=== PATIENT | female | born 1985 | race Caucasian/White ===

== ENCOUNTER 2017-03-07 16:51 | Emergency (ER) | payer MEDICAID ==
[~2017-03-07 16:51] MED LIST: FLAG500T PO; ULTR50TA PO
--- NOTE | 2017-03-07 18:06 | PD ---
HPI Chief Complaint Spotting and cramping Date Seen: Mar 07, 2017 Time Seen: 17:40 Travel History International Travel<30 Days: No Contact w/Intl Traveler<30Days: No Known Affected Area: No History of Present Illness HPI 31-year-old 7 para 6 with 5 living children who is at 18 weeks gestation based on an 11 week 5 day ultrasound performed in [place] giving her an EDC of August 04. She reports over the past week having a spot or 2 of blood and pain in her abdominal area like a pulled muscle. She denies leakage of fluid or discharge. Weeks Gestation: 18 Para: 6 : 7 Miscarriage: 0 History Past Medical History Narrative Medical History of bradycardia with recent evaluation during this in the [place] area. She takes no medication for this. Obstetric History Obstetric History 6 prior vaginal deliveries which she reports have all occurred between 4-6 weeks early. Her first child from SIDS She reports her blood type is O+ She has not had any care with this . She had ultrasound dating during hospitalization [place] for evaluation of her bradycardia. Past Surgical History Surgical History: No Previous Surgery Family History Family History: Negative Social History Alcohol Use: No Tobacco Use: No Substance Abuse: No Allergies-Medications (Allergen,Severity, Reaction): Coded Allergies: No Known Allergies (Verified , 12/17/15) Home Meds Active Scripts Tramadol HCl (Ultram) 50 Mg Tab, 50 MG PO Q4H Y for PAIN SCALE 1 TO 10, #5 TAB Prov:Dwight Davalos MD 12/17/15 Metronidazole (Flagyl) 500 Mg Tab, 500 MG PO BID, #14 TAB Prov:Dwight Davalos MD 12/17/15 Review of Systems Except as stated in HPI: all other systems reviewed are Neg Physical Exam Narrative GENERAL: Well-nourished, well-developed patient. SKIN: Warm and dry. HEAD: Normocephalic and atraumatic. EYES: No scleral icterus. No injection or drainage. ENT: No nasal drainage noted. Mucous membranes pink. Airway patent. NECK: Supple, trachea midline. No JVD. CARDIOVASCULAR: Regular rate and rhythm without murmurs, gallops, or rubs. RESPIRATORY: Breath sounds equal bilaterally. No accessory muscle use. ABDOMEN/GI: Abdomen soft, non-tender, bowel sounds present, no rebound, no guarding Gravid to [-] weeks size Fundal Height: [-] GENITOURINARY: External Genitalia: intact and normal in appearance BUS glands: [Negative-] Cervix: [-] Dilatation: [Closed-] Effacement: [-Long] Station: [-] Presentation: [-] Membranes: [intact or ruptured] Uterine Contractions: [-] FHT's: Category: [-] Baseline: [-140] Reactive: [-] Variability: [-] Decels: [-] EXTREMITIES: No cyanosis or edema. BACK: Nontender without obvious deformity. No CVA tenderness. NEUROLOGICAL: Awake and alert. Motor and sensory grossly within normal limits. Five out of 5 muscle strength in all muscle groups. Normal speech. Data Data Vital Signs Reviewed: Yes MDM Medical Record Reviewed: Yes Narrative Course / MDM Assessment: 31-year-old grand multipara at 18 weeks gestation with no care and threatened AB. Plan: Information on care for women was given to the patient so that she could enroll in care as soon as possible. Precautions for follow-up were reviewed with the patient. Diagnosis Diagnosis: Primary Impression: 18 weeks gestation of Additional Impression: Threatened Disposition: 01 DISCHARGE HOME Condition: Good Al Prasad MD Mar 07, 2017 18:06
== END 2017-03-07 18:15 | disposition home or self-care (01) ==
LOC: HOBED 16:51
DX: O20.0 Threatened abortion (principal); Z86.79 Personal history of other diseases of the circulatory system; Z3A.18 18 weeks gestation of pregnancy
CPT/HCPCS: 99283

== ENCOUNTER 2017-04-01 08:54 | Emergency (ER) | payer MEDICAID ==
[2017-04-01 09:41] VITALS: BP 102/70; PULSE 66
--- NOTE | 2017-04-01 10:01 | PD ---
HPI Chief Complaint Fall Date Seen: Apr 01, 2017 Time Seen: 09:58 Travel History International Travel<30 Days: No Contact w/Intl Traveler<30Days: No Known Affected Area: No History of Present Illness HPI 31-year-old who is at 22 weeks 1 day based on limited criteria, patient has had no care but she had one ultrasound at some point during her first trimester due to a vaginal spotting. Patient states that she was getting up out of bed and fell over her child who is sleeping on the floor and hit the lower portion of her abdomen on a standard fan. He feels a little cramping and the lower abdominal area but no contractions no pain and no vaginal bleeding. Patient is feeling movement. Weeks Gestation: 22 Para: 6 : 7 History Past Medical History Medical History: Denies Significant Hx Obstetric History Obstetric History Spontaneous vaginal delivery 6 Past Surgical History Surgical History: No Previous Surgery Family History Family History: Negative Social History Alcohol Use: No Tobacco Use: Yes (1-2 packs per day) Substance Abuse: Yes (marijuana use) Allergies-Medications (Allergen,Severity, Reaction): Coded Allergies: No Known Allergies (Verified , 12/17/15) Home Meds Active Scripts Tramadol HCl (Ultram) 50 Mg Tab, 50 MG PO Q4H Y for PAIN SCALE 1 TO 10, #5 TAB Prov:Dwight Davalos MD 12/17/15 Metronidazole (Flagyl) 500 Mg Tab, 500 MG PO BID, #14 TAB Prov:Dwight Davalos MD 12/17/15 Review of Systems Except as stated in HPI: all other systems reviewed are Neg Physical Exam Narrative GENERAL: Well-nourished, well-developed patient. SKIN: Warm and dry. HEAD: Normocephalic and atraumatic. EYES: No scleral icterus. No injection or drainage. ENT: No nasal drainage noted. Mucous membranes pink. Airway patent. NECK: Supple, trachea midline. No JVD. CARDIOVASCULAR: Regular rate and rhythm without murmurs, gallops, or rubs. RESPIRATORY: Breath sounds equal bilaterally. No accessory muscle use. ABDOMEN/GI: Abdomen soft, non-tender, bowel sounds present, no rebound, no guarding Gravid to [19-] weeks size Fundal Height: [-] GENITOURINARY: Deferred External Genitalia: intact and normal in appearance BUS glands: [Normal-] Cervix: [-] Dilatation: [-] Effacement: [-] Station: [-] Presentation: [-] Membranes: [intact or ruptured] Uterine Contractions: [-] FHT's: Category: [-1] Baseline: [140-] Reactive: [-Moderate] Variability: [-Moderate] Decels: [Absent-] EXTREMITIES: No cyanosis or edema. BACK: Nontender without obvious deformity. No CVA tenderness. NEUROLOGICAL: Awake and alert. Motor and sensory grossly within normal limits. Five out of 5 muscle strength in all muscle groups. Normal speech. Data Data Vital Signs Reviewed: Yes [facility] Medical Record Reviewed: Yes Plan 31-year-old at 22 weeks status post fall Will order ultrasound as she seems to be size less than dates but it is difficult to tell based on her multiparous examination Will order labs I can at least see her Rh status. Checked out to oncoming OB hospitalist Diagnosis Diagnosis: Primary Impression: 22 weeks gestation of Additional Impressions: No care in current in second trimester Smoker within last 12 months Livia Bucio MD Apr 01, 2017 10:01
[2017-04-01] MEDS ORDERED: ACETAMINOPHEN 325 MG TAB PO ONE (10:15)
[2017-04-01 10:43] LABS: HEMATOCRIT 31.3 % (35.0-46.0); MEAN CELL VOLUME 91.3 FL (80.0-100.0); MEAN CORPUSCULAR HEMOGLOBIN 31.2 PG (27.0-34.0); MEAN CORPUSCULAR HGB CONC 34.2 % (32.0-36.0); PLATELET COUNT 226 TH/MM3 (150-450); RED BLOOD COUNT 3.43 MIL/MM3 (4.00-5.30); RED CELL DISTRIBUTION WIDTH 14.6 % (11.6-17.2); REVIEW FLAG FINAL
[2017-04-01 11:22] LABS: RUBELLA IGG ANTIBODY 112.5 IU/mL (10.0-500.0); RUBELLA STATUS IMMUNE (IMMUNE)
[2017-04-01 13:00] VITALS: RESP 18
[2017-04-04 09:24] LABS: BATH SALTS (MDPV) UR NEG (NEG); ECSTASY (MDMA) UR NEG (NEG); GABAPENTIN UR NEG (NEG); HEROIN (6-ACETYLMORPHINE) UR NEG (NEG); HYDROMORPHONE U NEG (NEG); K2 SPICE UR NEG (NEG); OBMETHADONE UR NEG (NEG); PHENCYCLIDINE URINE NEG (NEG)
== END 2017-04-01 14:06 | disposition home or self-care (01) ==
LOC: HOBED 08:54
DX: O09.32 Supervision of pregnancy with insufficient antenatal care, second trimester (principal); Z3A.22 22 weeks gestation of pregnancy; W01.198A Fall on same level from slipping, tripping and stumbling with subsequent striking against other object, initial encounter; Y92.003 Bedroom of unspecified non-institutional (private) residence as the place of occurrence of the external cause; Z11.3 Encounter for screening for infections with a predominantly sexual mode of transmission
CPT/HCPCS: 76805; 76815; 80074; 80307; 85027; 86592; 86762; 86850; 86900; 86901; 87389; 99284; G0481

== ENCOUNTER 2017-04-23 12:40 | Emergency (ER) | payer MEDICAID ==
[~2017-04-23] VITALS: Ht 175.3 cm; Wt 72.0 kg
[2017-04-23 13:10] VITALS: BP 113/63; PULSE 100; RESP 16; TEMP 99; O2SAT 97
[2017-04-23] MEDS ORDERED: LORA-400 PO (13:24)
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
== END 2017-04-23 14:51 | disposition home or self-care (01) ==
LOC: PHEFT 12:40
DX: O99.512 Diseases of the respiratory system complicating pregnancy, second trimester (principal); J31.0 Chronic rhinitis; O99.332 Smoking (tobacco) complicating pregnancy, second trimester; F17.210 Nicotine dependence, cigarettes, uncomplicated; Z3A.25 25 weeks gestation of pregnancy
CPT/HCPCS: 99282

== ENCOUNTER 2017-05-16 22:17 | Emergency (ER) | payer MEDICAID ==
[~2017-05-16] VITALS: Ht 175.3 cm; Wt 71.7 kg
[~2017-05-16 22:17] MED LIST changes: -FLAG500T PO; +LORA-400 PO; -ULTR50TA PO
--- NOTE | 2017-05-16 23:46 | PD ---
HPI Chief Complaint ?contractions Date Seen: May 16, 2017 Time Seen: 23:39 Travel History International Travel<30 Days: No Contact w/Intl Traveler<30Days: No Known Affected Area: No History of Present Illness HPI 31-year-old 7 para 6 at 28-5/7 weeks' gestation who presents with concern of possible contractions. She denies any leakage of fluid, bleeding or abdominal pain. No dysuria hematuria or frequency. History Obstetric History Obstetric History 6 prior vaginal deliveries which she states were all 4-6 weeks premature She's had no care with this other than visits to the ED. Past Surgical History Narrative Surgical PE tubes Family History Family History: Negative Social History Alcohol Use: No Tobacco Use: Yes Substance Abuse: Yes (marijuana) Allergies-Medications (Allergen,Severity, Reaction): Coded Allergies: No Known Allergies (Verified Adverse Reaction, Unknown, 05/16/17) Home Meds Discontinued Reported Medications Loratadine-Pseudoephedrine 24 HR (Claritin-D 24 HR) 10-240 Mg Tab, 1 TAB PO DAILY for Allergy Management, TAB 0 Refills 04/23/17 Review of Systems Except as stated in HPI: all other systems reviewed are Neg Physical Exam Narrative GENERAL: Well-nourished, well-developed patient. SKIN: Warm and dry. HEAD: Normocephalic and atraumatic. EYES: No scleral icterus. No injection or drainage. ENT: No nasal drainage noted. Mucous membranes pink. Airway patent. NECK: Supple, trachea midline. No JVD. CARDIOVASCULAR: Regular rate and rhythm without murmurs, gallops, or rubs. RESPIRATORY: Breath sounds equal bilaterally. No accessory muscle use. ABDOMEN/GI: Abdomen soft, non-tender, bowel sounds present, no rebound, no guarding Gravid to [-] weeks size Fundal Height: [-29] GENITOURINARY: External Genitalia: intact and normal in appearance BUS glands: [-Negative] Cervix: [-] Dilatation: [-Closed] Effacement: [-Long] Station: [High -] Presentation: [-] Membranes: [intact ] Uterine Contractions: [-None] FHT's: Category: [-1] Baseline: [-] Reactive: [Yes-] Variability: [-] Decels: [-] EXTREMITIES: No cyanosis or edema. BACK: Nontender without obvious deformity. No CVA tenderness. NEUROLOGICAL: Awake and alert. Motor and sensory grossly within normal limits. Five out of 5 muscle strength in all muscle groups. Normal speech. Data Data Orders Orders Fibronectin (05/16/17 23:04) Vital Signs (Adult) .ON ADMISSION (05/16/17 23:19) ^ Labor Status (05/16/17 23:19) Labs Laboratory Tests Test 05/16/17 23:05 MDM Medical Record Reviewed: Yes Narrative Course / MDM Assessment: 28 weeks 5 days intrauterine with without evidence of labor Plan: Emphasized importance of care for this patient. Tobacco cessation was encouraged to decrease risk and labor risk. Labor signs and symptoms were reviewed. Diagnosis Diagnosis: Primary Impression: 28 weeks gestation of Additional Impression: Winneconne Escalante' contraction Disposition: 01 DISCHARGE HOME Condition: Good Al Prasad MD May 16, 2017 23:46
== END 2017-05-17 00:05 | disposition home or self-care (01) ==
LOC: HOBED 22:17
DX: O47.1 False labor at or after 37 completed weeks of gestation (principal); O99.333 Smoking (tobacco) complicating pregnancy, third trimester; Z3A.28 28 weeks gestation of pregnancy
CPT/HCPCS: 82731; 99284

== ENCOUNTER 2017-09-12 17:27 | Emergency (ER) | payer MEDICAID ==
[~2017-09-12] VITALS: Ht 175.3 cm; Wt 73.5 kg
[2017-09-12 17:30] VITALS: BP 116/61; PULSE 58; RESP 16; TEMP 98.8; O2SAT 100
[2017-09-12] MEDS ORDERED: ACETAMINOPHEN/HYDROcodone 325 MG/5 MG TAB PO ONE (17:45)
--- NOTE | 2017-09-12 17:45 | PD ---
HPI Chief Complaint: Injury Time Seen by Provider: 17:34 Travel History International Travel<30 days: No Contact w/Intl Traveler<30days: No Traveled to known affect area: No History of Present Illness HPI 31-year-old female that presents to the ED for evaluation of fall. Per patient she fell 2 days ago. Per patient she tripped on a log a lot of left side. She denies any her head or losing consciousness. Per patient she wants something to her left hips and today she developed more pain in her left ribs as well as with swelling. She is taking any blood thinners. Pain with range of motion as well as with deep breaths and touch. States also having some mid back pain that radiates to the left shoulder. Denies any prior injuries to this area. No neck pain. No lower back pain. No urinary or bowel movement issues. Denies . States the pain is 8 out of 10 especially on the ribs and the back. Head per patient seems to be getting better except with certain range of motion. Has no allergies to medication. Numbness, tingling, weakness. No other medical issues. PFSH Past Medical History Anxiety: Yes Heart Rhythm Problems: Yes (bradycardia.) Cardiovascular Problems: Yes (IRREGULAR HB) Diminished Hearing: Yes Immunizations Current: Yes Migraines: Yes LMP: 2 weeks ago Menopausal: No : 6 Para: 5 Miscarriage: 0 : 0 Past Surgical History Ear Surgery: Yes (tubes) Tympanostomy Tube: Yes Other Surgery: Yes (EAR TUBES CHILD) Social History Alcohol Use: No Tobacco Use: Yes Substance Use: No Allergies-Medications (Allergen,Severity, Reaction): Coded Allergies: No Known Allergies (Verified Adverse Reaction, Unknown, 09/12/17) Reported Meds & Prescriptions Reported Meds & Active Scripts Active No Active Prescriptions or Reported Medications Review of Systems Except as stated in HPI: all other systems reviewed are Neg Physical Exam Narrative GENERAL: SKIN: Warm and dry. HEAD: Atraumatic. Normocephalic. EYES: Pupils equal and round. No scleral icterus. No injection or drainage. ENT: No nasal bleeding or discharge. Mucous membranes pink and moist. Tongue is midline. No uvula deviation. NECK: Trachea midline. No JVD. CARDIOVASCULAR: Regular rate and rhythm. RESPIRATORY: No accessory muscle use. Clear to auscultation. Breath sounds equal bilaterally. GASTROINTESTINAL: Abdomen soft, non-tender, nondistended. Hepatic and splenic margins not palpable. MUSCULOSKELETAL: Extremities without clubbing, cyanosis, or edema. No obvious deformities. Full range of motion of the upper and lower extremities bilaterally. Patient has a producible pain on the left rib cage just below the breast with some soft tissue swelling noted. Seen with female nurse present. 2 + pulses bilaterally. No lumbar, thoracic, cervical spine tenderness to palpation. Most of the pain appears to be in the musculature in the thoracic area from the left side. No scapular tenderness patient. No pelvic bone tenderness to palpation. Patient range of motion of the left hip. Neurovascular intact. NEUROLOGICAL: Awake and alert. No obvious cranial nerve deficits. Motor grossly within normal limits. Five out of 5 muscle strength in the arms and legs. Normal speech. PSYCHIATRIC: Appropriate mood and affect; insight and judgment normal. Data Data Last Documented VS Vital Signs Date Time Temp Pulse Resp B/P (MAP) Pulse Ox O2 Delivery O2 Flow Rate FiO2 09/12/17 17:30 98.8 58 16 116/61 (79) 100 Orders Orders Hip, Uni(Ap&Lat) W Ap Pelvis (09/12/17 17:37) Ribs, Uni (W/Exp Cxr-Min 3vw) (09/12/17 17:37) Spine, Thoracic-Ap/Lat/Sw(3vw) (09/12/17 17:37) Acetamin-Hydrocod 325-5 Mg (Swengel 5-325 (09/12/17 17:45) MDM Medical Decision Making Medical Screen Exam Complete: Yes Emergency Medical Condition: Yes Medical Record Reviewed: Yes Interpretation(s) xray of ribs was negative xray of hip negative xray of thoracic spine negative for acute bony injury Differential Diagnosis Fall versus contusion versus fracture versus bruise Narrative Course 31-year-old female that presents to the ED for evaluation of fall. Patient was properly examined and was found to have signs and symptoms consistent appears to be fall. Imaging was ordered. Patient was given pain medication. Imaging showed no sign of acute bony injury. Patient was reassured. Likely contusions. We'll treat with Flexeril and tramadol for pain. Told to follow with PCP. See ED worsening symptoms. Ice or warm compresses. Diagnosis Primary Impression: Fall Qualified Codes: W19.XXXA - Unspecified fall, initial encounter Additional Impressions: Back pain Qualified Codes: M54.6 - Pain in thoracic spine Contusion of hip, left Qualified Codes: S70.02XA - Contusion of left hip, initial encounter Contusion of rib on left side Qualified Codes: S20.212A - Contusion of left front wall of thorax, initial encounter Patient Instructions: General Instructions, Narcotic given in the ED Additional Instructions: Take medications as prescribed. Follow-up with PCP. See ED for any worsening symptoms. Do not drink or drive while taking pain medication. Apply ice or heat as needed for pain Med/Other Pt SpecificInfo: Prescription(s) given Scripts Tramadol (Tramadol) 50 Mg Tab 50 MG PO Q6H Y for PAIN, #14 TAB 0 Refills Prov: Jeny Ladd DO 09/12/[address] (Diclofenac Sodium DR) 75 Mg Tabdr 75 MG PO BID Y for PAIN SCALE 1 TO 10, #20 TAB 0 Refills Prov: Jeny Ladd DO 09/12/17 Disposition: 01 DISCHARGE HOME Condition: Stable Johnathon Dinh Sep 12, 2017 17:45
[2017-09-12] MEDS ORDERED: TRAM50TA PO (18:21)
[2017-09-12] MEDS ORDERED: DICL75TA PO (18:21)
--- NOTE | 2017-09-12 18:47 | RADRPT ---
EXAM DATE/TIME: 09/12/2017 17:54 [facility] COMPARISON: No previous studies available for comparison. INDICATIONS : Left hip pain post fall. MEDICAL HISTORY : None. SURGICAL HISTORY : None. ENCOUNTER: Initial ACUITY: 2 days PAIN SCORE: 6/10 LOCATION: Left pelvis FINDINGS: Examination of the left hip was performed with AP Pelvis. The primary and secondary trabecular patte rn of the femoral neck is intact. The hip joint is of normal width without significant sclerosis or bony hypertrophy. The acetabulum is grossly intact. CONCLUSION: No fracture seen. Cal Kirby MD on September 12, 2017 at 18:45 Board Certified Radiologist. This report was verified electronically.
--- NOTE | 2017-09-12 18:48 | RADRPT ---
EXAM DATE/TIME: 09/12/2017 17:54 [facility] COMPARISON: No previous studies available for comparison. INDICATIONS : Left posterior, inferior rib pain irradiating around under left breast post fall. MEDICAL HISTORY : None. SURGICAL HISTORY : None. ENCOUNTER: Initial ACUITY: 2 days PAIN SCORE: 9/10 LOCATION: Left chest FINDINGS: Multiple views of the left ribs were performed. There is no evidence of displaced fracture. No dest ructive lesions or areas of periosteal thickening are seen. Expiratory view of the chest is negative for pneumothorax. The mediastinal structures are midline. CONCLUSION: Negative left rib series. Cal Kirby MD on September 12, 2017 at 18:46 Board Certified Radiologist. This report was verified electronically.
--- NOTE | 2017-09-12 18:48 | RADRPT ---
EXAM DATE/TIME: 09/12/2017 17:54 [facility] COMPARISON: SPINE THORACIC AP/LAT/SW (3VW), August 22, 2012, 21:57. INDICATIONS : Thoracic spine pain post fall. MEDICAL HISTORY : None. SURGICAL HISTORY : None. ENCOUNTER: Initial ACUITY: 2 days PAIN SCORE: 9/10 LOCATION: Bilateral thoarcic spine FINDINGS: There is normal alignment of the thoracic vertebral bodies. Vertebral body height is maintained. No evidence of fracture or subluxation. Pedicles are intact at all levels. The paravertebral reflecti ons are not thickened. CONCLUSION: No evidence of compression deformity or spondylolisthesis. Cal Kirby MD on September 12, 2017 at 18:45 Board Certified Radiologist. This report was verified electronically.
== END 2017-09-12 19:12 | disposition home or self-care (01) ==
LOC: PHEFT 17:27
DX: M54.6 Pain in thoracic spine (principal); S70.02XA Contusion of left hip, initial encounter; S20.212A Contusion of left front wall of thorax, initial encounter; W18.09XA Striking against other object with subsequent fall, initial encounter
CPT/HCPCS: 71101; 72072; 73502; 99284

== ENCOUNTER 2018-08-29 11:48 | Inpatient (IN) ==
--- NOTE | 2018-08-29 12:38 | ED ---
History of Present Illness Primary Care Physician: No Primary Care Physician Chief Complaint: Leaking of fluid History of Present Illness: 32-year-old G7P 6005, no care. Patient is a poor historian. is been complicated by no care, history of heart attack and noncompliant with cardiology followup, hearing defect, marijuana use The patient presents complaining of the onset of leaking of fluid between 8:53 PM last night. She reports that it is a small amount of clear fluid that she notices mostly after she urinates. She denies any big gush of fluid. She reports that the fluid does not smell like urine. She reports that she started having contractions about 4:57 AM today that were increasing in intensity and frequency to every 5 minutes. She reports that she is still having them but now they are irregular and much less frequent. She reports a syncopal episode 2 days ago. She reports good movement. She denies any vaginal bleeding. SHe reports she had some chest pain, but denies any at this time. She has no other complaints. 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 PMH: MT, bradycardia, blood clot on heart valve, depression, anxiety, hypoglycemia FH: Thyroid disease, CAD, MT, cervical cancer, breast cancer PSH: PE tubes SH: Reports marijuana use, denies other substance abuse Meds/allergies: As per EMR Weeks Gestation:: 32 Para: 6 : 7 Total # of Miscarriage(s): 0 Total # of Abortions (Spontaneous & Elective): 0 Review of Systems All other systems reviewed negative except as stated in HPI [facility] - History History Provided By: Patient - Medical History Medical History: Medical History (Last Updated 01/29/18 @ 12:01 by Jessica Kelley RN) Sinus bradycardia, chronic (Acute) High cholesterol (Acute) Myocardial infarct, old (Acute) - Surgical History Surgical History: Surgical History (Last Updated 01/29/18 @ 12:01 by Jessica Kelley RN) Hx of cardiac cath (Acute) - Tobacco History Second Hand Smoke Exposure: Yes Smoking Status: Current every day smoker Tobacco Type: Cigarettes - Alcohol History How Often Do You Have a Drink Containing Alcohol: Never - Substance Use History Substance History: No History of Abuse Medications and Allergies Allergies Allergy/AdvReac Type Severity Reaction Status Date / Time No Known Allergies Allergy Unknown none Uncoded 03/11/18 09:33 Exam Vital signs: Vital Signs 08/29/18 12:11 08/29/18 12:12 Temperature 98.3 F Pulse Rate 83 Respiratory Rate 20 Blood Pressure 114/67 Intake & Output 08/28/18 08/29/18 08/29/18 18:59 06:59 18:59 Weight 72.575 kg Narrative: GENERAL: Well-nourished, well-developed patient. NAD. SKIN: Warm and dry. No rashes, masses, lesions noted. HEAD: Normocephalic and atraumatic. EYES: No scleral icterus. No injection or drainage. ENT: No nasal drainage noted. Mucous membranes pink. Airway patent. NECK: Supple, trachea midline. No JVD. CARDIOVASCULAR: Regular rate and rhythm without murmurs, gallops, or rubs. RESPIRATORY: Breath sounds equal bilaterally. No accessory muscle use. BREASTS: Deferred ABDOMEN/GI: Abdomen soft, non-tender, bowel sounds present, no rebound, no guarding, Gravid. GENITOURINARY: Normal EGBUS, no cervical or vaginal masses noted, physiologic discharge, grossly normal rugae, SVE 3/50/-3, Amnisure positive FHT's: NST indicated for leaking of fluid and prematurity. Moderate halfway variability with heart rate baseline in the 140s, good accelerations and no decelerations noted. This is a category 1 heart rate tracing and reactive NST. EXTREMITIES: No cyanosis or edema. BACK: Nontender without obvious deformity. No CVA tenderness. NEUROLOGICAL/Musculoskeletal/Psychiatric: Awake and alert. Grossly normal memory /affect. Grossly normal range of motion. Grossly normal gait. Motor and sensory grossly within normal limits. Five out of 5 muscle strength in all muscle groups. Normal speech. Cranial Nerves II-XII are grossly intact. Results - Labs CBC & Chem 7: 08/29/18 13:00 08/29/18 13:00 Assessment and Plan - Plan Assessment/plan: 1. IUP at 32.6 by today's ultrasound 2. No care: We will order labs 3. PPROM: Patient 32.6 by today's ultrasound. We will start magnesium sulfate for tocolysis, betamethasone for lung maturity, and ampicillin/ azithromycin to prolong latency. Neonatology consultation placed. Discharge Plan - Physicians Team Primary Care Provider: Primary Care Tricia Loo Attending Provider: Jacqui Salmon Other Providers: Carlos Velazquez MD - Rxs /Orders / Referrals /Forms Prescriptions: No Action albuterol sulfate 90 mcg/actuation HFA aerosol inhaler 1 inh INHALATION Q4-6H PRN (Reason: bronchospasm) Qty: 6.7 RF: 0 amoxicillin-pot clavulanate [Augmentin] 875-125 mg tablet 1 tab PO BID Qty: 20 RF: 0
[2018-08-29] MEDS ORDERED: Acetaminophen 325 MG Tablet PO PRN (12:49)
[2018-08-29 13:45] LABS: Baso # (Auto) 0.1 th/mm3 (0.0-0.2); Baso % (Auto) 0.4 % (0.0-2.0); Eos # (Auto) 0.3 th/mm3 (0.0-0.4); Eos % (Auto) 1.6 % (0.0-4.0); Hematocrit 32.2 % (35.0-46.0); Hemoglobin 10.9 gm/dL (11.6-15.3); Lymph # (Auto) 2.2 th/mm3 (1.0-4.8); Lymph % (Auto) 13.6 % (9.0-44.0); Mean Corpuscular HGB Conc 33.8 % (32.0-36.0); Mean Corpuscular Volume 91.8 fL (80.0-100.0); Mean Platelet Volume 7.9 fL (7.0-11.0); Mono # (Auto) 1.3 th/mm3 (0.0-0.9); Neut # (Auto) 12.3 th/mm3 (1.8-7.7); Neut % (Auto) 76.4 % (16.0-70.0); Platelet Count 298 th/mm3 (150-450); Red Blood Count 3.51 mil/mm3 (4.00-5.30); Red Cell Distribution Width 14.2 % (11.6-17.2); White Blood Count 16.1 th/mm3 (4.0-11.0)
[2018-08-29 14:06] LABS: Alanine Aminotransferase 12 U/L (10-53); Albumin 2.4 g/dL (3.4-5.0); Anion Gap 11 meq/L (5-15); Aspartate Aminotransferase 13 U/L (15-37); Blood Urea Nitrogen 3 mg/dL (7-18); Calcium 8.1 mg/dL (8.5-10.1); Carbon Dioxide 21.9 meq/L (21.0-32.0); Chloride 106 meq/L (98-107); Glomerular Filtration Rate Greater Than 89 mL/min (>89); Glucose,Random 71 mg/dL (74-106); Potassium 3.5 meq/L (3.5-5.1); Sodium 139 meq/L (136-145)
[2018-08-29 14:08] LABS: Alkaline Phosphatase 136 U/L (45-117); Total Protein 6.5 g/dL (6.4-8.2)
[2018-08-29] MEDS ORDERED: Mag Sulf/Water 4 gm/100 ml 100 ML IV.SIG ONE (14:42)
--- NOTE | 2018-08-29 14:57 | ECHRPT ---
Indication: Chronic Pulm Heart Disease CONCLUSIONS Mildly dilated left ventricle. Wall thickness is measured at the upper limits of normal. The left ventricular systolic function is normal with an estimated ejection fraction in the range of 55-60%. There is trace tricuspid valve regurgitation. The estimated pulmonary arterial pressure is 28 mmHg. BP: / HR: Rhythm: MEASUREMENTS (Male / Female) Normal Values Technical Quality:Good 2D ECHO LV Diastolic Diameter PLAX 5.3 cm 4.2 - 5.9 / 3.9 - 5.3 cm LV Systolic Diameter PLAX 3.4 cm IVS Diastolic Thickness 1.0 cm 0.6 - 1.0 / 0.6 - 0.9 cm LVPW Diastolic Thickness 0.9 cm 0.6 - 1.0 / 0.6 - 0.9 cm LV Relative Wall Thickness 0.4 RV Internal Dim ED PLAX 3.5 cm LVOT Diameter 2.1 cm Aortic Root Diameter 2.8 cm LA Systolic Diameter LX 3.4 cm 3.0 - 4.0 / 2.7 - 3.8 cm DOPPLER AV Peak Velocity 140.0 cm/s AV Peak Gradient 7.8 mmHg LVOT Peak Velocity 121.0 cm/s LVOT Peak Gradient 5.9 mmHg AV Area Cont Eq pk 3.0 cm Mitral E Point Velocity 114.0 cm/s Mitral A Point Velocity 101.0 cm/s Mitral E to A Ratio 1.1 LV E' Lateral Velocity 19.3 cm/s Mitral E to LV E' Lateral Ratio 5.9 LV E' Septal Velocity 10.9 cm/s Mitral E to LV E' Septal Ratio 10.5 TR Peak Velocity 214.0 cm/s TR Peak Gradient 18.3 mmHg Right Atrial Pressure 10.0 mmHg Pulmonary Artery Systolic Pressu 28.3 mmHg Right Ventricular Systolic Press 28.3 mmHg PV Peak Velocity 111.0 cm/s PV Peak Gradient 4.9 mmHg FINDINGS LEFT VENTRICLE Mildly dilated left ventricle. Wall thickness is measured at the upper limits of normal. The left ventricular systolic function is normal with an estimated ejection fraction in the range of 55-60%. RIGHT VENTRICLE Normal right ventricular size and systolic function. LEFT ATRIUM The left atrial size is normal. RIGHT ATRIUM The right atrial size is normal. ATRIAL SEPTUM Normal atrial septal thickness without atrial level shunting by limited color doppler interrogation. AORTA The aortic root and proximal ascending aorta are normal in size on limited imaging. MITRAL VALVE Structurally normal mitral valve. No mitral valve stenosis or regurgitation. AORTIC VALVE Trileaflet aortic valve. No aortic valve stenosis or regurgitation. TRICUSPID VALVE There is trace tricuspid valve regurgitation. The estimated pulmonary arterial pressure is 28 mmHg. PULMONARY VALVE No pulmonary valve regurgitation or stenosis. VESSELS The inferior vena cava is normal in size. PERICARDIUM No pericardial effusion. Carlos Velazquez MD (Electronically Signed) Final Date:29 August 2018 14:56
[2018-08-29] MEDS: Betamethasone Sod Phos/Acetate Inj 30 MG/5 ML Vial IM SCH (16:18)
[2018-08-29] MEDS: Mag Sulf/Water 40 gm/1000 ml 40 GM/1,000 ML BAG IV.CONT SCH (16:20)
[2018-08-29] MEDS: Azithromycin Inj 500 MG in Sodium Chlor 0.9% Inj 250 ML IV.SIG SCH (16:47)
[2018-08-29 17:07] LABS: Bacteria,Urine Rare /hpf; Bilirubin,Urine Negative (Negative); Clarity,Urine Clear (Clear); Color,Urine Yellow (Yellw/Straw); Glucose,Urine (UA) Negative (Negative); Hyaline Casts,Urine 1 /lpf (0-3); Leukocyte Esterase,Urine Small (Negative); Mucus,Urine Few /lpf (Occasional); Nitrite,Urine Negative (Negative); Specific Gravity,Urine 1.012 (1.002-1.035); Squamous Epithelial Cell,Urine 1 /hpf (0-5)
--- NOTE | 2018-08-29 17:10 | MB ---
cc: Carlos Velazquez MD DATE: 08/29/2018 REASON FOR CONSULTATION: Questionable cardiac disease. HISTORY OF PRESENT ILLNESS: The patient is a pleasant 32-year-old woman who is currently on the obstetrics floor for rupture of membranes. She has a questionable complex cardiac disease, but her history is rather vague. The patient states that she has had "a heart attack by blood work" and a "blood clot in her heart." She denies having any stents placed. She does say she had a cardiac catheterization about a year ago at [facility], but nothing was done at this time. She says she has had multiple episodes of passing out that she has always attributed to her blood sugars. She does say that people have told her in the past that she might need a pacemaker, but again this is very vague. I do note that the patient continues to smoke and has positive marijuana in her toxicology screen, though she denies other illicit drugs. The patient does endorse vague upper chest burning off and on for years. PAST MEDICAL HISTORY: Questionable cardiac history as above. CURRENT MEDICATIONS: Ampicillin, Colace. ALLERGIES: NO KNOWN DRUG ALLERGIES. PHYSICAL EXAMINATION: VITAL SIGNS: Afebrile, pulse 83, respiratory rate 20, BP 114/67. GENERAL: Pleasant young woman in no distress. NECK: No JVD. LUNGS: Clear to auscultation bilaterally. CARDIOVASCULAR: Regular rate and rhythm. No murmurs appreciated. ABDOMEN: Benign. EXTREMITIES: No edema. LABORATORY DATA: Sodium 139, potassium 3.5, chloride 106, bicarbonate 21.9, BUN 3, creatinine 0.33, glucose 71. White count 16.1, hematocrit 32.2, platelets 298. EKG shows sinus rhythm with no acute ST or T-wave changes. Echocardiogram showed normal left ventricular function with no significant valvular disease. IMPRESSION: Cardiac history. The patient's cardiac history is very vague. She has normal testing here including an EKG and echocardiogram, yet reports what sounds like an extensive cardiac history. It is difficult to reconcile these differences. I will attempt to get her cardiac catheterization report from [facility], but if there is no significant coronary disease by the cardiac catheterization, she likely does not require any further inpatient studies. Her history of syncope is vague and apparently has been worked up well in the past and this could be further worked up as an outpatient. An outpatient workup could include a short-term or long-term Holter monitor. Certainly while she is , we would not pursue aggressive radiological studies that would potentially provide radiation to the baby. Should her cardiac catheterization show no significant coronary artery disease, I would sign off, and again, she should follow up with an outpatient deli bakery clerk. Thank you again for the opportunity to participate in this patient's care. Carlos Velazquez MD CLARISSE/sv , 03:39 PM , 03:48 PM
--- NOTE | 2018-08-29 18:00 | ECG ---
Date Performed: 08/29/2018 Time Performed: 13:23:25 PTAGE: 32 years EKG: Sinus rhythm WITH MARKED SINUS ARRHYTHMIA BORDERLINE ECG PREVIOUS TRACING : 03/11/2018 10.57 Since the previous tracing, no significant change noted DOCTOR: Brandie Hou Interpretating Date/Time 08/29/2018 17:58:35
--- NOTE | 2018-08-29 18:17 | P.HPOB ---
History of Present Illness Primary Care Physician: No Primary Care Physician Chief Complaint: Leaking of fluid History of Present Illness: Patient Name: Andie Javed Date of : 87 Patient Status: Inpatient Attending Provider: Jacqui Salmon Date: 08/29/18 12:36 Initialization Date: 08/29/18 12:36 History of Present Illness Primary Care Physician: No Primary Care Physician Chief Complaint: Leaking of fluid History of Present Illness: 32-year-old G7P 6005, no care. Patient is a poor historian. is been complicated by no care, history of heart attack and noncompliant with cardiology followup, hearing defect, marijuana use The patient presents complaining of the onset of leaking of fluid between 8:53 PM last night. She reports that it is a small amount of clear fluid that she notices mostly after she urinates. She denies any big gush of fluid. She reports that the fluid does not smell like urine. She reports that she started having contractions about 4:57 AM today that were increasing in intensity and frequency to every 5 minutes. She reports that she is still having them but now they are irregular and much less frequent. She reports a syncopal episode 2 days ago. She reports good movement. She denies any vaginal bleeding. SHe reports she had some chest pain, but denies any at this time. She has no other complaints. 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 NAD. SKIN: Warm and dry. No rashes, masses, lesions noted. HEAD: Normocephalic and atraumatic. EYES: No scleral icterus. No injection or drainage. ENT: No nasal drainage noted. Mucous membranes pink. Airway patent. NECK: Supple, trachea midline. No JVD. CARDIOVASCULAR: Regular rate and rhythm without murmurs, gallops, or rubs. RESPIRATORY: Breath sounds equal bilaterally. No accessory muscle use. BREASTS: Deferred ABDOMEN/GI: Abdomen soft, non-tender, bowel sounds present, no rebound, no guarding, Gravid. GENITOURINARY: Normal EGBUS, no cervical or vaginal masses noted, physiologic discharge, grossly normal rugae, SVE 3/50/-3, Amnisure positive FHT's: NST indicated for leaking of fluid and prematurity. Moderate group home variability with heart rate baseline in the 140s, good accelerations and no decelerations noted. This is a category 1 heart rate tracing and reactive NST. EXTREMITIES: No cyanosis or edema. BACK: Nontender without obvious deformity. No CVA tenderness. NEUROLOGICAL/Musculoskeletal/Psychiatric: Awake and alert. Grossly normal memory /affect. Grossly normal range of motion. Grossly normal gait. Motor and sensory grossly within normal limits. Five out of 5 muscle strength in all muscle groups. Normal speech. Cranial Nerves II-XII are grossly intact. Results Assessment and Plan - Plan Assessment/plan: 1. IUP at 32.6 by today's ultrasound 2. No care: We will order labs 3. PPROM: Patient 32.6 by today's ultrasound. We will start magnesium sulfate for tocolysis, betamethasone for lung maturity, and ampicillin/ azithromycin to prolong latency. Neonatology consultation placed. We discussed the risks of . We discussed the indications for section including maternal indications, indications, and emergent indications. The risks, benefits, and alternatives of section were discussed with the patient. The risks include but are not limited to pain, infection, bleeding , injury to other organs like the bladder/bowel/nerves/vessels, injury to the baby, need for repeat operation, need for hysterectomy, need for blood transfusion, wound infection or breakdown, and other possible risks. All the patient's questions were answered and consent signed. 4. well-being: Reassuring testing with reactive NST and category 1 heart rate tracing, will continue external monitoring 5. History of ND: Cardiology consultation placed, EKG/echo ordered 6. History of depression/anxiety: No meds at this time 7. Tobacco use 8. Marijuana use 9. History of hypoglycemia Discharge Plan - Physicians Team Primary Care Provider: Primary Care Tricia Loo Attending Provider: Jacqui Salmon Other Providers: Carlos Velazquez MD - Rxs /Orders / Referrals /Forms Prescriptions: No Action albuterol sulfate 90 mcg/actuation HFA aerosol inhaler 1 inh INHALATION Q4-6H PRN (Reason: bronchospasm) Qty: 6.7 RF: 0 amoxicillin-pot clavulanate [Augmentin] 875-125 mg tablet 1 tab PO BID Qty: 20 RF: 0 - Inpatient Certification I certify that the inpatient services were ordered in accordance with Medicare regulations governing the order. This includes certification that hospital inpatient services are reasonable and necessary and in the case of services not specified as inpatient-only under 42 CFR 419.22(n), that they are appropriately provided as inpatient services in accordance to with the 2-midnight benchmark under 43 CFR 412.3(e) Estimated Total Length of Stay (Days): 3 Plans for Post Hospital Care: Home [facility] - History History Provided By: Patient - Medical History Medical History: Medical History (Last Updated 01/29/18 @ 12:01 by Jessica Kelley RN) Sinus bradycardia, chronic (Acute) High cholesterol (Acute) Myocardial infarct, old (Acute) - Surgical History Surgical History: Surgical History (Last Updated 01/29/18 @ 12:01 by Jessica Kelley RN) Hx of cardiac cath (Acute) - Tobacco History Second Hand Smoke Exposure: Yes Smoking Status: Current every day smoker Tobacco Type: Cigarettes - Alcohol History How Often Do You Have a Drink Containing Alcohol: Never - Substance Use History Substance History: No History of Abuse Medications and Allergies Active Medications: Active Medications Acetaminophen (Tylenol) 650 mg PO Q4H PRN PRN Reason: PAIN SCALE 1 TO 5 Betamethasone Acet/Betameth SodPhos (Celestone Soluspan Inj) 12 mg IM Q24H [facility] Stop: 08/31/18 12:59 Last Admin: 08/29/18 16:18 Dose: 12 mg Calcium Gluconate (Calcium Gluconate Inj) 1 gm IV.PUSH ONCE PRN PRN Reason: Magnesium Toxicity Docusate Sodium (Colace) 100 mg PO DAILY [facility] Ferrous Sulfate (Ferosul) 325 mg PO BID [facility] Azithromycin 500 mg/ Sodium (Chloride) 250 mls @ 250 mls/hr IV.SIG Q24H [facility] Stop: 08/30/18 13:59 Last Admin: 08/29/18 16:47 Dose: 250 mls/hr Lactated Ringer's (Lr 1000 Ml Inj) 1,000 mls @ 125 mls/hr IV.CONT .Q8H [facility] Last Admin: 08/29/18 16:13 Dose: 125 mls/hr Magnesium Sulfate (Magnesium Sulfate/Water 40 Gm/1000 Ml Premix) 40 gm in 1, 000 mls @ 50 mls/hr IV.CONT Q24H [facility] Last Admin: 08/29/18 16:20 Dose: 2 gm/hr, 50 mls/hr Ampicillin Sodium 2,000 mg/ (Sodium Chloride) 100 mls @ 200 mls/hr IV.SIG Q6H [facility] Stop: 08/31/18 11:29 Last Admin: 08/29/18 18:09 Dose: 200 mls/hr Ondansetron HCl (Zofran Odt) 4 mg PO Q6H PRN PRN Reason: NAUSEA OR VOMITING Vit/Calcium/Iron/Folic Ac (Stuartnatal Plus 3) 1 tab PO DAILY [place] Sodium Chloride (Ns Flush) 2 ml IV.FLUSH BID [facility] Sodium Chloride (Ns Flush) 2 ml IV.FLUSH PRN PRN PRN Reason: FLUSH AFTER USING IV ACCESS Zolpidem Tartrate (Ambien) 5 mg PO HS PRN PRN Reason: SLEEP Allergies Allergy/AdvReac Type Severity Reaction Status Date / Time No Known Allergies Allergy Unknown none Uncoded 03/11/18 09:33 Exam Vital signs: Vital Signs 08/29/18 12:11 08/29/18 12:12 08/29/18 14:55 Temperature 98.3 F Pulse Rate 83 70 Respiratory Rate 20 Blood Pressure 114/67 08/29/18 15:55 08/29/18 16:14 08/29/18 17:25 Temperature Pulse Rate 59 L 71 81 Respiratory Rate 16 Blood Pressure 115/66 111/60 122/65 08/29/18 17:30 08/29/18 17:35 Temperature Pulse Rate 78 82 Respiratory Rate Blood Pressure 121/64 115/62 Intake & Output 08/28/18 08/29/18 08/29/18 18:59 06:59 18:59 Weight 72.575 kg Results - Labs CBC & Chem 7: 08/29/18 13:00 08/29/18 13:00 Labs: Laboratory Results - last 24 hr 08/29/18 08/29/18 08/29/18 13:00 13:00 13:00 WBC 16.1 H RBC 3.51 L Hgb 10.9 L Hct 32.2 L MCV 91.8 MCH 31.0 MCHC 33.8 RDW 14.2 Plt Count 298 MPV 7.9 Neut % (Auto) 76.4 H Lymph % (Auto) 13.6 Beadle % (Auto) 8.0 Eos % (Auto) 1.6 Baso % (Auto) 0.4 Neut # (Auto) 12.3 H Lymph # (Auto) 2.2 [place]le # (Auto) 1.3 H Eos # (Auto) 0.3 Baso # (Auto) 0.1 WBC Differential . Differential Comment Auto diff final Sodium 139 Potassium 3.5 Chloride 106 Carbon Dioxide 21.9 Anion Gap 11 BUN 3 L Creatinine 0.33 L Estimated GFR Greater than 89 Random Glucose 71 L Calcium 8.1 L Total Bilirubin 0.2 Direct Bilirubin Less than 0.1 Indirect Bilirubin 0.1 AST 13 L ALT 12 Alkaline Phosphatase 136 H Total Protein 6.5 Albumin 2.4 L Urine Color Urine Clarity Urine pH Ur Specific [place] Urine Protein Urine Glucose (UA) Urine Ketones Urine Occult Blood Urine Nitrate Urine Bilirubin Urine Urobilinogen Ur Leukocyte Esterase Urine RBC Urine WBC Ur Squamous Epith Cells Urine Bacteria Hyaline Casts Urine Mucus Micro UA Comment Ur Microscopic Review Urine Culture Comments POC Urine Opiates Negative POC Urine Buprenorphine Negative POC Urine Oxycodone Negative POC Urine Methadone Negative POC Urine Barbiturates Negative POC Urine PCP Negative POC Ur Amphetamines Negative POC Ur Methamphetamine Negative POC Urine MDMA Negative POC Ur Benzodiazepine Negative POC Urine Cocaine Negative POC Ur Marijuana (THC) Positive H 08/29/18 13:00 WBC RBC Hgb Hct MCV MCH MCHC RDW Plt Count MPV Neut % (Auto) Lymph % (Auto) Beadle % (Auto) Eos % (Auto) Baso % (Auto) Neut # (Auto) Lymph # (Auto) [place] # (Auto) Eos # (Auto) Baso # (Auto) WBC Differential Differential Comment Sodium Potassium Chloride Carbon Dioxide Anion Gap BUN Creatinine Estimated GFR Random Glucose Calcium Total Bilirubin Direct Bilirubin Indirect Bilirubin AST ALT Alkaline Phosphatase Total Protein Albumin Urine Color Yellow Urine Clarity Clear Urine pH 6.0 Ur Specific [place] 1.012 Urine Protein Negative Urine Glucose (UA) Negative Urine Ketones Negative Urine Occult Blood Negative Urine Nitrate Negative Urine Bilirubin Negative Urine Urobilinogen Less than 2 Ur Leukocyte Esterase Small H Urine RBC 2 Urine WBC 14 H Ur Squamous Epith Cells 1 Urine Bacteria Rare H Hyaline Casts 1 Urine Mucus Few H Micro UA Comment Culture indicated Ur Microscopic Review Not Reportable Urine Culture Comments Culture indicated POC Urine Opiates POC Urine Buprenorphine POC Urine Oxycodone POC Urine Methadone POC Urine Barbiturates POC Urine PCP POC Ur Amphetamines POC Ur Methamphetamine POC Urine MDMA POC Ur Benzodiazepine POC Urine Cocaine POC Ur Marijuana (THC) Caprini VTE Risk Assessment Caprini VTE Risk Assessment: No/Low Risk (score <= 1) Caprini Risk Assessment Model: Point Value = 1 Point Value = 2 Point Value = 3 Point Value = 5 Age 41-60 Minor surgery BMI > 25 kg/m2 Swollen legs Varicose veins or History of unexplained or recurrent spontaneous Oral contraceptives or hormone replacement Sepsis (< 1 month) Serious lung disease, including pneumonia (< 1 month) Abnormal pulmonary function Acute myocardial infarction Congestive heart failure (< 1 month) History of inflammatory bowel disease Medical patient at bed rest Age 61-74 Arthroscopic surgery Major open surgery (> 45 min) Laparoscopic surgery (> 45 min) Malignancy Confined to bed (> 72 hours) Immobilizing plaster cast Central venous access Age >= 75 History of VTE Family history of VTE Factor V Leiden Prothrombin [id number] Lupus anticoagulant Anticardiolipin antibodies Elevated serum homocysteine Heparin-induced thrombocytopenia Other congenital or acquired thrombophilia Stroke (< 1 month) Elective arthroplasty Hip, pelvis, or leg fracture Acute spinal cord injury (< 1 month) Prophylaxis Regimen: Total Risk Factor Score Risk Level Prophylaxis Regimen 0-1 Low Early ambulation 2 Moderate Order ONE of the following: *Sequential Compression Device (SCD) *Heparin 5000 units SQ BID 3-4 Higher Order ONE of the following medications: *Heparin 5000 units SQ TID *Enoxaparin/Lovenox 40 mg SQ daily (WT < 150 kg, CrCl > 30 mL/min) *Enoxaparin/Lovenox 30 mg SQ daily (WT < 150 kg, CrCl > 10-29 mL/min) *Enoxaparin/Lovenox 30 mg SQ BID (WT < 150 kg, CrCl > 30 mL/min) AND/OR *Sequential Compression Device (SCD) 5 or more Highest Order ONE of the following medications: *Heparin 5000 units SQ TID (Preferred with Epidurals) *Enoxaparin/Lovenox 40 mg SQ daily (WT < 150 kg, CrCl > 30 mL/min) *Enoxaparin/Lovenox 30 mg SQ daily (WT < 150 kg, CrCl > 10-29 mL/min) *Enoxaparin/Lovenox 30 mg SQ BID (WT < 150 kg, CrCl > 30 mL/min) AND *Sequential Compression Device (SCD)
[2018-08-29] MEDS ORDERED: Lidocaine 2% Jelly 5 ML Syringe TOPICAL ONE (20:00)
[2018-08-29] MEDS ORDERED: Lidocaine 2% Jelly 5 ML Syringe OTHER ONE (20:00)
--- NOTE | 2018-08-29 20:39 | ECG ---
Date Performed: 08/29/2018 Time Performed: 18:45:29 PTAGE: 32 years EKG: SINUS BRADYCARDIA WITH MARKED SINUS ARRHYTHMIA BORDERLINE ECG PREVIOUS TRACING : 08/29/2018 13.23 Since the previous tracing, no significant change noted DOCTOR: Brandie Huo Interpretating Date/Time 08/29/2018 20:38:23
[2018-08-29 20:47] LABS: Creatine Kinase 76 U/L (26-192)
[2018-08-29 21:00] LABS: ABG Base Excess -1.8 mmol/L (-2-2); ABG PCO2 26 mmHg (38-42); ABG PO2 109 mmHG (61-120)
[2018-08-29] MEDS ORDERED: fentaNYL Citrate Inj 100 MCG/2 ML Ampul IV.PUSH PRN (21:31)
[2018-08-29] MEDS: fentaNYL Citrate Inj 100 MCG/2 ML Ampul IV.PUSH PRN (22:00)
[2018-08-29 23:42] LABS: Hepatitis A IgM Antibody Nonreactive (Nonreactive); Hepatitits B Surface Antigen Nonreactive (Nonreactive)
[2018-08-30] MEDS: Ferrous Sulfate 325 MG Tablet PO SCH ×3 (00:24→20:45)
[2018-08-30] MEDS: Zolpidem Tartrate 5 MG Tablet PO PRN ×2 (00:39→23:42)
[2018-08-30 01:22] LABS: Creatine Kinase 67 U/L (26-192)
[2018-08-30] MEDS: fentaNYL Citrate Inj 100 MCG/2 ML Ampul IV.PUSH PRN ×9 (02:31→23:17)
[2018-08-30] MEDS: Docusate Sodium 100 MG Capsule PO SCH (08:33)
[2018-08-30] MEDS: Prenatal Vit/Ca/Iron/Folic Acid Tablet PO SCH (08:35)
[2018-08-30 10:17] LABS: Creatine Kinase 55 U/L (26-192)
--- NOTE | 2018-08-30 10:36 | P.OBANTE ---
Subjective Interval History: Patient doing well this morning, states her contractions have decreased in intensity, she has been placed on magnesium yesterday. Discussed with patient she might need to stay on magnesium for an extra 24 hours, she will receive her second dose of betamethasone today. Patient states her chest pain is improving , troponins and EKG have been within normal limits. Discussed patient can have a regular diet today. Discussed patient must remain on urinary catheter until she is off magnesium. Patient voiced understanding. She continues to have trickle down of fluid, feeling baby move okay. Antepartum ROS: Reports: Loss of fluid, movement normal Denies: New complaints, Vaginal bleeding, Contractions Objective Vital Signs and I&O: Vital Signs 08/29/18 12:11 08/29/18 12:12 08/29/18 14:55 Temperature 98.3 F Pulse Rate 83 70 Respiratory Rate 20 Blood Pressure 114/67 08/29/18 15:55 08/29/18 16:14 08/29/18 17:25 Temperature Pulse Rate 59 L 71 81 Respiratory Rate 16 Blood Pressure 115/66 111/60 122/65 08/29/18 17:30 08/29/18 17:35 08/29/18 17:44 Temperature Pulse Rate 78 82 78 Respiratory Rate Blood Pressure 121/64 115/62 110/61 08/29/18 18:10 08/29/18 18:45 08/29/18 19:05 Temperature 98.2 F Pulse Rate 81 66 Respiratory Rate 16 Blood Pressure 117/69 107/53 L 08/29/18 19:15 08/29/18 20:10 08/29/18 21:13 Temperature Pulse Rate 71 64 63 Respiratory Rate 18 18 18 Blood Pressure 106/72 100/46 L 08/29/18 22:17 08/29/18 22:25 08/29/18 23:25 Temperature Pulse Rate 65 71 83 Respiratory Rate 18 Blood Pressure 106/57 L 114/71 08/29/18 23:40 08/30/18 00:10 08/30/18 00:15 Temperature 98.2 F Pulse Rate 72 82 Respiratory Rate 18 Blood Pressure 112/65 08/30/18 00:32 08/30/18 01:15 08/30/18 02:02 Temperature Pulse Rate 74 77 74 Respiratory Rate 18 18 18 Blood Pressure 95/56 L 104/54 L 08/30/18 02:30 08/30/18 02:34 08/30/18 03:45 Temperature Pulse Rate 75 73 Respiratory Rate 18 18 Blood Pressure 105/60 08/30/18 04:40 08/30/18 04:45 08/30/18 06:00 Temperature 98.4 F 97.9 F Pulse Rate 72 79 Respiratory Rate 18 18 Blood Pressure 104/56 L 97/55 L 08/30/18 07:55 08/30/18 08:00 08/30/18 08:49 Temperature 97.7 F Pulse Rate 67 57 L 127 H Respiratory Rate 18 17 Blood Pressure 89/47 L 08/30/18 08:50 08/30/18 09:40 Temperature Pulse Rate 63 64 Respiratory Rate Blood Pressure Intake & Output 08/29/18 08/30/18 08/30/18 18:59 06:59 18:59 Intake Total 100 / 100 1100 / 1100 Balance 100 / 100 1100 / 1100 Weight 72.575 kg Intake: IV 100 / 100 1100 / 1100 LR 1000 mL Inj 1,000 ML @ 125 1000 / 1000 mls/hr IV.CONT .Q8H [facility] Rx#: [id number] Ampicillin Inj 2,000 MG In NS 100 / 100 100 / 100 Inj 100 ML @ 200 mls/hr IV.SIG Q6H [facility] Rx#:[id number] Lab and Micro Results: Laboratory Results - last 24 hr 08/29/18 08/29/18 08/29/18 13:00 13:00 13:00 WBC 16.1 H RBC 3.51 L Hgb 10.9 L Hct 32.2 L MCV 91.8 MCH 31.0 MCHC 33.8 RDW 14.2 Plt Count 298 MPV 7.9 Neut % (Auto) 76.4 H Lymph % (Auto) 13.6 [place] % (Auto) 8.0 Eos % (Auto) 1.6 Baso % (Auto) 0.4 Neut # (Auto) 12.3 H Lymph # (Auto) 2.2 [place]land # (Auto) 1.3 H Eos # (Auto) 0.3 Baso # (Auto) 0.1 WBC Differential . Differential Comment Auto diff final Puncture Site Patient Temperature O2 Saturation ABG pH ABG pCO2 ABG pO2 ABG HCO3 ABG O2 Content ABG Base Excess ABG Methemoglobin Cedric Test Hemoglobin Carboxyhemoglobin Inspired O2 Critical Value Sodium 139 Potassium 3.5 Chloride 106 Carbon Dioxide 21.9 Anion Gap 11 BUN 3 L Creatinine 0.33 L Estimated GFR Greater than 89 Random Glucose 71 L Calcium 8.1 L Total Bilirubin 0.2 Direct Bilirubin Less than 0.1 Indirect Bilirubin 0.1 AST 13 L ALT 12 Alkaline Phosphatase 136 H Total Creatine Kinase Troponin I Total Protein 6.5 Albumin 2.4 L Urine Color Urine Clarity Urine pH Ur Specific [place] Urine Protein Urine Glucose (UA) Urine Ketones Urine Occult Blood Urine Nitrate Urine Bilirubin Urine Urobilinogen Ur Leukocyte Esterase Urine RBC Urine WBC Ur Squamous Epith Cells Urine Bacteria Hyaline Casts Urine Mucus Micro UA Comment Ur Microscopic Review Urine Culture Comments POC Urine Opiates Negative POC Urine Buprenorphine Negative POC Urine Oxycodone Negative POC Urine Methadone Negative POC Urine Barbiturates Negative POC Urine PCP Negative POC Ur Amphetamines Negative POC Ur Methamphetamine Negative POC Urine MDMA Negative POC Ur Benzodiazepine Negative POC Urine Cocaine Negative POC Ur Marijuana (THC) Positive H Chlam trachomat DNA PCR Hepatitis A IgM Ab Hep Bs Antigen Hep B Core IgM Ab Hep C IgG Ab HIV 1&2 Ab/P24 Ag 4thGn N.gonorrhoeae DNA (PCR) Rubella Immunity Screen Rubella Ab, Quant Blood Type Blood Type Recheck Antibody Screen 08/29/18 08/29/18 08/29/18 13:00 13:00 18:42 WBC RBC Hgb Hct MCV MCH MCHC RDW Plt Count MPV Neut % (Auto) Lymph % (Auto) [place] % (Auto) Eos % (Auto) Baso % (Auto) Neut # (Auto) Lymph # (Auto) [place] # (Auto) Eos # (Auto) Baso # (Auto) WBC Differential Differential Comment Puncture Site Lrad Patient Temperature 98.6 O2 Saturation 95 ABG pH 7.52 H* ABG pCO2 26 L ABG pO2 109 ABG HCO3 21 L ABG O2 Content 15.7 ABG Base Excess -1.8 ABG Methemoglobin 1.8 Cedric Test + Hemoglobin 11.6 L Carboxyhemoglobin 1.5 Inspired O2 21 Critical Value Yes Sodium Potassium Chloride Carbon Dioxide Anion Gap BUN Creatinine Estimated GFR Random Glucose Calcium Total Bilirubin Direct Bilirubin Indirect Bilirubin AST ALT Alkaline Phosphatase Total Creatine Kinase Troponin I Total Protein Albumin Urine Color Yellow Urine Clarity Clear Urine pH 6.0 Ur Specific [place] 1.012 Urine Protein Negative Urine Glucose (UA) Negative Urine Ketones Negative Urine Occult Blood Negative Urine Nitrate Negative Urine Bilirubin Negative Urine Urobilinogen Less than 2 Ur Leukocyte Esterase Small H Urine RBC 2 Urine WBC 14 H Ur Squamous Epith Cells 1 Urine Bacteria Rare H Hyaline Casts 1 Urine Mucus Few H Micro UA Comment Culture indicated Ur Microscopic Review Not Reportable Urine Culture Comments Culture indicated POC Urine Opiates POC Urine Buprenorphine POC Urine Oxycodone POC Urine Methadone POC Urine Barbiturates POC Urine PCP POC Ur Amphetamines POC Ur Methamphetamine POC Urine MDMA POC Ur Benzodiazepine POC Urine Cocaine POC Ur Marijuana (THC) Chlam trachomat DNA PCR Not detected Hepatitis A IgM Ab Hep Bs Antigen Hep B Core IgM Ab Hep C IgG Ab HIV 1&2 Ab/P24 Ag 4thGn N.gonorrhoeae DNA (PCR) Detected Rubella Immunity Screen Rubella Ab, Quant Blood Type Blood Type Recheck Antibody Screen 08/29/18 08/29/18 08/29/18 19:36 22:00 22:00 WBC RBC Hgb Hct MCV MCH MCHC RDW Plt Count MPV Neut % (Auto) Lymph % (Auto) [place] % (Auto) Eos % (Auto) Baso % (Auto) Neut # (Auto) Lymph # (Auto) [place] # (Auto) Eos # (Auto) Baso # (Auto) WBC Differential Differential Comment Puncture Site Patient Temperature O2 Saturation ABG pH ABG pCO2 ABG pO2 ABG HCO3 ABG O2 Content ABG Base Excess ABG Methemoglobin Cedric Test Hemoglobin Carboxyhemoglobin Inspired O2 Critical Value Sodium Potassium Chloride Carbon Dioxide Anion Gap BUN Creatinine Estimated GFR Random Glucose Calcium Total Bilirubin Direct Bilirubin Indirect Bilirubin AST ALT Alkaline Phosphatase Total Creatine Kinase 76 Troponin I Less than 0.02 L Total Protein Albumin Urine Color Urine Clarity Urine pH Ur Specific [place] Urine Protein Urine Glucose (UA) Urine Ketones Urine Occult Blood Urine Nitrate Urine Bilirubin Urine Urobilinogen Ur Leukocyte Esterase Urine RBC Urine WBC Ur Squamous Epith Cells Urine Bacteria Hyaline Casts Urine Mucus Micro UA Comment Ur Microscopic Review Urine Culture Comments POC Urine Opiates POC Urine Buprenorphine POC Urine Oxycodone POC Urine Methadone POC Urine Barbiturates POC Urine PCP POC Ur Amphetamines POC Ur Methamphetamine POC Urine MDMA POC Ur Benzodiazepine POC Urine Cocaine POC Ur Marijuana (THC) Chlam trachomat DNA PCR Hepatitis A IgM Ab Hep Bs Antigen Hep B Core IgM Ab Hep C IgG Ab HIV 1&2 Ab/P24 Ag 4thGn N.gonorrhoeae DNA (PCR) Rubella Immunity Screen Immune Rubella Ab, Quant 215.0 Blood Type A Positive Blood Type Recheck Not needed Antibody Screen Negative 08/29/18 08/30/18 08/30/18 22:00 00:41 09:00 WBC RBC Hgb Hct MCV MCH MCHC RDW Plt Count MPV Neut % (Auto) Lymph % (Auto) [place] % (Auto) Eos % (Auto) Baso % (Auto) Neut # (Auto) Lymph # (Auto) [place] # (Auto) Eos # (Auto) Baso # (Auto) WBC Differential Differential Comment Puncture Site Patient Temperature O2 Saturation ABG pH ABG pCO2 ABG pO2 ABG HCO3 ABG O2 Content ABG Base Excess ABG Methemoglobin Cedric Test Hemoglobin Carboxyhemoglobin Inspired O2 Critical Value Sodium Potassium Chloride Carbon Dioxide Anion Gap BUN Creatinine Estimated GFR Random Glucose Calcium Total Bilirubin Direct Bilirubin Indirect Bilirubin AST ALT Alkaline Phosphatase Total Creatine Kinase 67 55 Troponin I Less than 0.02 L Less than 0.02 L Total Protein Albumin Urine Color Urine Clarity Urine pH Ur Specific [place] Urine Protein Urine Glucose (UA) Urine Ketones Urine Occult Blood Urine Nitrate Urine Bilirubin Urine Urobilinogen Ur Leukocyte Esterase Urine RBC Urine WBC Ur Squamous Epith Cells Urine Bacteria Hyaline Casts Urine Mucus Micro UA Comment Ur Microscopic Review Urine Culture Comments POC Urine Opiates POC Urine Buprenorphine POC Urine Oxycodone POC Urine Methadone POC Urine Barbiturates POC Urine PCP POC Ur Amphetamines POC Ur Methamphetamine POC Urine MDMA POC Ur Benzodiazepine POC Urine Cocaine POC Ur Marijuana (THC) Chlam trachomat DNA PCR Hepatitis A IgM Ab Nonreactive Hep Bs Antigen Nonreactive Hep B Core IgM Ab Nonreactive Hep C IgG Ab Nonreactive HIV 1&2 Ab/P24 Ag 4thGn Nonreactive N.gonorrhoeae DNA (PCR) Rubella Immunity Screen Rubella Ab, Quant Blood Type Blood Type Recheck Antibody Screen Physical Exam: GENERAL: Well-nourished, well-developed patient. CARDIOVASCULAR: Regular rate and rhythm without murmurs, gallops, or rubs. RESPIRATORY: Breath sounds equal bilaterally. No accessory muscle use. ABDOMEN/GI: Abdomen soft, non-tender. EXTREMITIES: No cyanosis or edema, non-tender, without signs of DVT. Assessment and Plan - Plan Assessment/plan: 32-year-old female at 34 WGA admitted for premature rupture of membranes. -Continue magnesium sulfate for tocolysis, will evaluate possible discontinuation of this medication if contractions are absent today. -Second dose of betamethasone for lung maturity -Continue ampicillin/azithromycin to prolong latency. -Neonatology consultation placed for possible delivery Patient seen and discussed with Dr. Salmon, and
[2018-08-30] MEDS: Mag Sulf/Water 40 gm/1000 ml 40 GM/1,000 ML BAG IV.CONT SCH ×2 (12:39→20:47)
[2018-08-30] MEDS: Betamethasone Sod Phos/Acetate Inj 30 MG/5 ML Vial IM SCH (13:33)
[2018-08-30] MEDS: Azithromycin Inj 500 MG in Sodium Chlor 0.9% Inj 250 ML IV.SIG SCH (13:34)
[2018-08-31] MEDS: fentaNYL Citrate Inj 100 MCG/2 ML Ampul IV.PUSH PRN ×2 (01:28→03:40)
[2018-08-31] MEDS ORDERED: Oxytocin 30 Units/500ml Premix 30 UNITS/500 ML BAG IV.SIG ONE (04:45)
[2018-08-31] MEDS ORDERED: Penicillin G Potassium Inj 5,000,000 UNIT in Sodium Chloride 0.9% Inj 100 ML IV.SIG ONE (04:45)
[2018-08-31] MEDS ORDERED: Citric Acid/Sodium Citrate Liq 30 ML UDC PO SCH (04:45)
[2018-08-31] MEDS ORDERED: Sod Chloride 0.9% Inj 1,000 ML IV.CONT PRN (04:45)
[2018-08-31] MEDS ORDERED: fentaNYL Citrate Inj 100 MCG/2 ML Ampul IV.PUSH PRN ×2 (04:45)
[2018-08-31] MEDS ORDERED: Naloxone Inj 0.4 MG/ML Vial IV.PUSH PRN ×2 (04:45→08:53)
[2018-08-31] MEDS ORDERED: Sodium Chlor 0.9% Inj 500 ML IV.SIG PRN (04:45)
[2018-08-31] MEDS ORDERED: fentaNYL 2MCG-Bupiv 0.125% Epi 150 ML EPIDURAL ONE (04:47)
--- NOTE | 2018-08-31 04:52 | P.OBGPN ---
Received report by RN patient feeling uncomfortable also heart rate early decelerations noted with contractions every 5 minutes Patient seen and evaluated. Complaining of pelvic pressure denies chest pain or shortness of breath but admits to market anxiety Exam cervix is 4 cm inner os, external os 5 cm/60-70% effaced/-2 station. Copious amount of fluid noted. Of note urine output is approximately 500 cc/h Patient in labor-plan DC magnesium sulfate and calcium gluconate. Epidural for pain management. CBC /CMP ordered.
[2018-08-31 05:03] LABS: Baso % (Auto) 0.1 % (0.0-2.0); Hematocrit 27.3 % (35.0-46.0); Hemoglobin 9.6 gm/dL (11.6-15.3); Lymph # (Auto) 1.7 th/mm3 (1.0-4.8); Lymph % (Auto) 7.9 % (9.0-44.0); Mean Corpuscular HGB Conc 35.1 % (32.0-36.0); Mean Corpuscular Hemoglobin 32.6 pg (27.0-34.0); Mean Corpuscular Volume 93.1 fL (80.0-100.0); Mean Platelet Volume 7.5 fL (7.0-11.0); Mono # (Auto) 1.5 th/mm3 (0.0-0.9); Mono % (Auto) 7.3 % (0.0-8.0); Neut # (Auto) 17.6 th/mm3 (1.8-7.7); Neut % (Auto) 84.7 % (16.0-70.0); Platelet Count 278 th/mm3 (150-450); Red Blood Count 2.93 mil/mm3 (4.00-5.30); Red Cell Distribution Width 14.4 % (11.6-17.2); White Blood Count 20.9 th/mm3 (4.0-11.0)
[2018-08-31 05:28] LABS: Alanine Aminotransferase 13 U/L (10-53); Albumin 2.1 g/dL (3.4-5.0); Alkaline Phosphatase 129 U/L (45-117); Anion Gap 8 meq/L (5-15); Aspartate Aminotransferase 8 U/L (15-37); Blood Urea Nitrogen 4 mg/dL (7-18); Carbon Dioxide 24.8 meq/L (21.0-32.0); Chloride 105 meq/L (98-107); Glomerular Filtration Rate Greater Than 89 mL/min (>89); Glucose,Random 139 mg/dL (74-106); Potassium 4.2 meq/L (3.5-5.1); Sodium 138 meq/L (136-145); Total Protein 5.8 g/dL (6.4-8.2)
[2018-08-31] MEDS ORDERED: fentaNYL Citrate Inj 100 MCG/2 ML Ampul EPIDURAL ONE (05:44)
[2018-08-31] MEDS ORDERED: fentaNYL 2MCG-Bupiv 0.125% Epi 150 ML EPIDURAL PRN (05:44)
[2018-08-31 06:06] LABS: Platelet Estimate Normal (Normal); Platelet Morphology Normal (Normal)
[2018-08-31] MEDS ORDERED: Lidocaaine 1.5%/Epinephrine 1:200,000 PF Inj 5 ML Amp ONE (06:10)
[2018-08-31] MEDS ORDERED: Lidocaine PF 1% Inj 5 ML Vial ONE (06:10)
[2018-08-31] MEDS ORDERED: Tranexamic Acid Inj 1,000 MG/10 ML Ampul ONE (08:37)
[2018-08-31] MEDS ORDERED: Sodium Chlor 0.9% Inj 100 ML ONE (08:37)
[2018-08-31] MEDS ORDERED: Witch Hazel 50%/Glyderin 12.5% 40 Pad Jar RECTAL PRN (08:53)
[2018-08-31] MEDS ORDERED: Oxytocin 30 Units/500ml Premix 30 UNITS/500 ML BAG IV.CONT PRN (08:53)
[2018-08-31] MEDS ORDERED: Benzocaine 20% Top Spray 60 ML Can TOPICAL PRN (08:53)
[2018-08-31] MEDS ORDERED: Bisacodyl 10 MG Supp RECTAL PRN (08:53)
[2018-08-31] MEDS ORDERED: Acetaminophen 325 MG Tablet PO PRN (08:53)
[2018-08-31] MEDS ORDERED: Penicillin G Potassium Inj 2,500,000 UNIT in Sodium Chlor 0.9% Inj 100 ML IV.SIG SCH (09:00)
--- NOTE | 2018-08-31 09:06 | P.OBDELI ---
Weeks Gestation: 32 Patient Started Active Labor: Yes Medical Induction of Labor: No Artificial Rupture of Membrane: No Anesthesia: None Vaginal Delivery: Normal Nuchal Cord: None Delayed Cord Clamping (45 sec): Yes Infant: Male Male A score (1 min): 8 score (5 min): 9 Additional Information: Head delivered by maternal effort. No nuchal cord. Anterior shoulder delivered without complication. Placenta delivered without complication. No tears. TXA 1 g given during delivery due to risk of post hemorrhage. Patient started Cytotec 200mg TID also afterward. Keflex 250mg BID started due to PPROM. Patient delivered with Dr. Earnest Clay. ( Attending note- Keflex initiated possible Ch[place]- elevated WBC-risk for endometritis )
[2018-08-31] MEDS: Prenatal Vit/Ca/Iron/Folic Acid Tablet PO SCH (09:34)
[2018-08-31] MEDS: Ferrous Sulfate 325 MG Tablet PO SCH ×3 (09:35→21:04)
[2018-08-31] MEDS: Senna/Docusate Sodium 8.6/50 MG Tablet PO SCH ×2 (09:59→21:04)
[2018-08-31] MEDS: Docusate Sodium 100 MG Capsule PO SCH (09:59)
[2018-08-31] MEDS: miSOPROStol 200 MCG Tablet PO SCH ×3 (09:59→17:46)
[2018-08-31] MEDS ORDERED: Tranexamic Acid Inj 1,000 MG in Sodium Chlor 0.9% Inj 100 ML IV.SIG SCH (10:00)
[2018-08-31] MEDS ORDERED: Measles/Mumps/Rubella Vaccine Inj 0.5 ML Vial SQ ONE (16:00)
[2018-08-31] MEDS ORDERED: Diphtheria/Tetanus/Pertussis Vaccine Inj 0.5 ML Syringe IM ONE (16:00)
[2018-08-31] MEDS: LORazepam 0.5 MG Tablet PO PRN (17:46)
[2018-08-31] MEDS: Zolpidem Tartrate 5 MG Tablet PO PRN (21:12)
[2018-09-01 05:09] LABS: Baso % (Auto) 0.2 % (0.0-2.0); Eos # (Auto) 0.1 th/mm3 (0.0-0.4); Eos % (Auto) 0.3 % (0.0-4.0); Hematocrit 30.7 % (35.0-46.0); Hemoglobin 10.5 gm/dL (11.6-15.3); Lymph # (Auto) 3.2 th/mm3 (1.0-4.8); Lymph % (Auto) 16.2 % (9.0-44.0); Mean Corpuscular HGB Conc 34.3 % (32.0-36.0); Mean Corpuscular Volume 93.5 fL (80.0-100.0); Mean Platelet Volume 8.1 fL (7.0-11.0); Mono # (Auto) 1.7 th/mm3 (0.0-0.9); Mono % (Auto) 8.6 % (0.0-8.0); Neut # (Auto) 14.7 th/mm3 (1.8-7.7); Neut % (Auto) 74.7 % (16.0-70.0); Platelet Count 280 th/mm3 (150-450); Red Blood Count 3.28 mil/mm3 (4.00-5.30); Red Cell Distribution Width 14.8 % (11.6-17.2); White Blood Count 19.7 th/mm3 (4.0-11.0)
[2018-09-01 07:32] LABS: Eosinophils 1 % (0-4); Lymphocytes 11 % (9-44); Metamyelocytes 1 % (0-1); Monocytes 6 % (0-8); Myelocytes 1 % (0-0); Promyelocyte 1 % (0-0)
[2018-09-01 07:33] LABS: Platelet Estimate Normal (Normal); Platelet Morphology Normal (Normal); RBC Morphology Normal (Normal)
[2018-09-01] MEDS: miSOPROStol 200 MCG Tablet PO SCH ×3 (08:15→17:22)
[2018-09-01] MEDS: Prenatal Vit/Ca/Iron/Folic Acid Tablet PO SCH (08:15)
[2018-09-01] MEDS: Docusate Sodium 100 MG Capsule PO SCH (08:15)
[2018-09-01] MEDS: Ferrous Sulfate 325 MG Tablet PO SCH ×2 (08:16→21:52)
[2018-09-01] MEDS: Senna/Docusate Sodium 8.6/50 MG Tablet PO SCH ×2 (08:16→21:51)
--- NOTE | 2018-09-01 09:17 | P.PNOB ---
Subjective Post day: 1 Interval history: Patient's pain is controlled with tramadol overnight but states her pain has returned this morning. Patient reports eating and drinking without any nausea or vomiting. Patient reports minimal bleeding. Patient has passed gas and had bowel movement. Patient is walking without lower extremity pain. Patient states she is having green discharge from both breasts and in past pregnancies had red rust color discharge. She states she has a history of blood clot to her lungs and HI. She also had PID. Patient is breast pumping. Denies any fever or chills. Objective Vital Signs/I&O: Vital Signs 08/31/18 09:14 08/31/18 09:16 08/31/18 09:20 Temperature 98.2 F Pulse Rate 52 L Respiratory Rate 18 9 L Blood Pressure 121/84 08/31/18 09:25 08/31/18 09:30 08/31/18 09:40 Temperature Pulse Rate 73 62 60 Respiratory Rate Blood Pressure 133/80 08/31/18 10:01 08/31/18 10:31 08/31/18 10:46 Temperature Pulse Rate 59 L 83 59 L Respiratory Rate Blood Pressure 116/62 114/75 119/62 08/31/18 11:00 08/31/18 12:00 08/31/18 13:00 Temperature 97.5 F L 98.3 F Pulse Rate 64 50 L 50 L Respiratory Rate 18 24 Blood Pressure 115/73 118/75 117/74 08/31/18 20:42 09/01/18 08:00 Temperature 97.9 F 98.1 F Pulse Rate 72 56 L Respiratory Rate 18 18 Blood Pressure 136/83 131/78 Result Diagrams: 09/01/18 04:45 08/31/18 04:54 Objective Remarks: GENERAL: Well-nourished, well-developed patient. CARDIOVASCULAR: Regular rate and rhythm without murmurs, gallops, or rubs. BREAST: non tender, no erythema RESPIRATORY: Breath sounds equal bilaterally. No accessory muscle use. ABDOMEN/GI: Abdomen soft, some tenderness to palpation Fundus: Firm, non-tender at umbilicus. GENITOURINARY: Light to moderate bleeding. EXTREMITIES: No cyanosis or edema, non-tender, without signs of DVT. Medications and IVs: Active Medications Acetaminophen (Tylenol) 650 mg PO Q4H PRN PRN Reason: PAIN SCALE 1 TO 2 Last Admin: 08/31/18 12:51 Dose: 650 mg Al Hydroxide/Mg Hydroxide (Milk Of Magnesia Liq) 30 ml PO Q12H PRN PRN Reason: Mild Constipation Benzocaine (Americaine 20% Top [place]) 1 spray TOPICAL Q4H PRN PRN Reason: For Perineum Discomfort Last Admin: 08/31/18 12:54 Dose: 1 spray Bisacodyl (Dulcolax Supp) 10 mg RECTAL DAILY PRN PRN Reason: SEVERE CONSITIPATION Cephalexin Monohydrate (Keflex) 250 mg PO BID [facility] Last Admin: 09/01/18 08:15 Dose: 250 mg Diphenhydramine HCl (Benadryl Inj) 50 mg IV.PUSH Q4H PRN PRN Reason: ABDOMINAL PAIN Last Admin: 08/31/18 00:46 Dose: 50 mg Docusate Sodium (Colace) 100 mg PO DAILY [facility] Last Admin: 09/01/18 08:15 Dose: 100 mg Ferrous Sulfate (Ferosul) 325 mg PO BID [facility] Last Admin: 09/01/18 08:16 Dose: Not Given Lactated Ringer's (Lr 1000 Ml Inj) 1,000 mls @ 125 mls/hr IV.CONT .Q8H [facility] Last Admin: 08/31/18 17:52 Dose: Not Given Fentanyl/Bupivacaine/Sodium Chlor (Fentanyl 2 Mcg-Bupiv 0.125% Epi) 150 mls @ 12 mls/hr EPIDURAL PRN PRN PRN Reason: for Labor Pain Last Admin: 08/31/18 05:00 Dose: 12 mls/hr Oxytocin (Pitocin 30 Units/Ns 500 Ml Premix) 30 units in 500 mls @ 100 mls/hr IV.CONT UNSCH PRN PRN Reason: Heavy bleeding Ibuprofen (Motrin) 800 mg PO Q8H PRN PRN Reason: For Cramping Last Admin: 09/01/18 00:53 Dose: 800 mg Lactulose (Lactulose Liq) 30 ml PO DAILY PRN PRN Reason: SEVERE CONSITIPATION Lorazepam (Ativan) 0.5 mg PO Q6H PRN PRN Reason: ANXIETY Last Admin: 08/31/18 17:46 Dose: 0.5 mg Misoprostol (Cytotec) 200 mcg PO TID [facility] Stop: 09/03/18 08:59 Last Admin: 09/01/18 08:15 Dose: 200 mcg Naloxone HCl (Narcan Inj) 0.1 mg IV.PUSH Q2M PRN PRN Reason: for opiate reversal Nicotine (Habitrol 21 Mg Patch.24 Hr) 1 patch T-DERMAL DAILY [facility] Last Admin: 08/31/18 21:13 Dose: 1 patch Ondansetron HCl (Zofran Odt) 4 mg PO Q6H PRN PRN Reason: NAUSEA OR VOMITING Ondansetron HCl (Zofran Odt) 4 mg PO Q6H PRN PRN Reason: NAUSEA OR VOMITING Vit/Calcium/Iron/Folic Ac (Stuartnatal Plus 3) 1 tab PO DAILY [facility] Last Admin: 09/01/18 08:15 Dose: 1 tab Senna/Docusate Sodium (Patricia-Colace) 1 tab PO BID [facility] Last Admin: 09/01/18 08:16 Dose: Not Given Sennosides (Senokot) 17.2 mg PO Q12H PRN PRN Reason: Moderate Constipation Sodium Chloride (Ns Flush) 2 ml IV.FLUSH BID [facility] Last Admin: 09/01/18 08:16 Dose: Not Given Sodium Chloride (Ns Flush) 2 ml IV.FLUSH PRN PRN PRN Reason: FLUSH AFTER USING IV ACCESS Tramadol HCl (Ultram) 100 mg PO Q6H PRN PRN Reason: pain Witch Katerina/Glycerin (Tucks Pads) 1 applicatio RECTAL QID PRN PRN Reason: HEMORRHOIDS Last Admin: 08/31/18 12:53 Dose: 1 applicatio Zolpidem Tartrate (Ambien) 5 mg PO HS PRN PRN Reason: SLEEP Last Admin: 08/31/18 21:12 Dose: 5 mg Assessment and Plan - Plan Assessment/plan: 32-year-old female at 33.1 WGA ppd1 vaginal delivery. premature rupture of membranes. -Received magnesium sulfate, betamethasone, ampicillin/azithromycin/rocephin -During delivery received 1g TXA, cytotec 200 BID for 2 days -Keflex 250 BID for 7 days as prophylaxis given PPROM and elevated white count -H/H today 10.5/30.7 from 9.6/27.3 stable -ativan prn anxiety --AF VSS --Continue routine care --Tramadol 100 q 6hrs and Tylenol when necessary for pain --Encourage OOB --Pelvic rest for 6 weeks will need follow-up appointment at that time. --Contraception: unsure --Anticipate discharge tomorrow --if continues to have green breast discharge recommend MRI outpatient when not breast pumping Patient discussed with Dr. Hayes - Attending Attestation The exam, history, and the medical decision-making described in the above note were completed with the assistance of the resident physician. I reviewed and agree with the findings presented. I attest that I had a [id number] encounter with the patient on the same day, and personally performed and documented my assessment and findings in the medical record. Pt seen and examined. Agree with resident note.
[2018-09-01] MEDS: LORazepam 0.5 MG Tablet PO PRN (17:02)
[2018-09-02] MEDS: Zolpidem Tartrate 5 MG Tablet PO PRN (00:38)
[2018-09-02 08:27] VITALS: BP 148/91; PULSE 42; RESP 18
[2018-09-02 08:28] VITALS: TEMP 98.3
--- NOTE | 2018-09-02 08:30 | P.PNOB ---
Subjective Post day: 2 Interval history: Patient's states her pain improves with tramadol. She has side muscular abdominal pain. Patient reports eating and drinking without any nausea or vomiting. Patient reports minimal bleeding. Patient has passed gas and had bowel movements. Patient is walking without lower extremity pain. Patient is breast pumping. Denies any fever or chills. Objective Vital Signs/I&O: Vital Signs 09/01/18 19:49 09/02/18 08:00 Temperature 97.9 F Pulse Rate 44 L 42 L Respiratory Rate 20 18 Blood Pressure 131/82 148/91 H Result Diagrams: 09/01/18 04:45 08/31/18 04:54 Objective Remarks: GENERAL: Well-nourished, well-developed patient. CARDIOVASCULAR: Regular rate and rhythm without murmurs, gallops, or rubs. RESPIRATORY: Breath sounds equal bilaterally. No accessory muscle use. ABDOMEN/GI: Abdomen soft, some tenderness on sides of abdomen bilaterally to palpation. Fundus: Firm, non-tender at umbilicus. GENITOURINARY: Light to moderate bleeding. EXTREMITIES: No cyanosis or edema, non-tender, without signs of DVT. Medications and IVs: Active Medications Acetaminophen (Tylenol) 650 mg PO Q4H PRN PRN Reason: PAIN SCALE 1 TO 2 Last Admin: 08/31/18 12:51 Dose: 650 mg Al Hydroxide/Mg Hydroxide (Milk Of Kathy Agosto) 30 ml PO Q12H PRN PRN Reason: Mild Constipation Benzocaine (Americaine 20% Top [place]) 1 spray TOPICAL Q4H PRN PRN Reason: For Perineum Discomfort Last Admin: 08/31/18 12:54 Dose: 1 spray Bisacodyl (Dulcolax Supp) 10 mg RECTAL DAILY PRN PRN Reason: SEVERE CONSITIPATION Cephalexin Monohydrate (Keflex) 250 mg PO BID [facility] Last Admin: 09/01/18 21:51 Dose: 250 mg Diphenhydramine HCl (Benadryl Inj) 50 mg IV.PUSH Q4H PRN PRN Reason: ABDOMINAL PAIN Last Admin: 08/31/18 00:46 Dose: 50 mg Docusate Sodium (Colace) 100 mg PO DAILY [facility] Last Admin: 09/01/18 08:15 Dose: 100 mg Ferrous Sulfate (Ferosul) 325 mg PO BID [facility] Last Admin: 09/01/18 21:52 Dose: Not Given Lactated Ringer's (Lr 1000 Ml Inj) 1,000 mls @ 125 mls/hr IV.CONT .Q8H [facility] Last Admin: 08/31/18 17:52 Dose: Not Given Fentanyl/Bupivacaine/Sodium Chlor (Fentanyl 2 Mcg-Bupiv 0.125% Epi) 150 mls @ 12 mls/hr EPIDURAL PRN PRN PRN Reason: for Labor Pain Last Admin: 08/31/18 05:00 Dose: 12 mls/hr Oxytocin (Pitocin 30 Units/Ns 500 Ml Premix) 30 units in 500 mls @ 100 mls/hr IV.CONT UNSCH PRN PRN Reason: Heavy bleeding Ibuprofen (Motrin) 800 mg PO Q8H PRN PRN Reason: For Cramping Last Admin: 09/01/18 00:53 Dose: 800 mg Lactulose (Lactulose Liq) 30 ml PO DAILY PRN PRN Reason: SEVERE CONSITIPATION Lorazepam (Ativan) 0.5 mg PO Q6H PRN PRN Reason: ANXIETY Last Admin: 09/01/18 17:02 Dose: 0.5 mg Misoprostol (Cytotec) 200 mcg PO TID [facility] Stop: 09/03/18 08:59 Last Admin: 09/01/18 17:22 Dose: Not Given Naloxone HCl (Narcan Inj) 0.1 mg IV.PUSH Q2M PRN PRN Reason: for opiate reversal Nicotine (Habitrol 21 Mg Patch.24 Hr) 1 patch T-DERMAL DAILY [facility] Last Admin: 09/01/18 09:00 Dose: Not Given Ondansetron HCl (Zofran Odt) 4 mg PO Q6H PRN PRN Reason: NAUSEA OR VOMITING Ondansetron HCl (Zofran Odt) 4 mg PO Q6H PRN PRN Reason: NAUSEA OR VOMITING Vit/Calcium/Iron/Folic Ac (Stuartnatal Plus 3) 1 tab PO DAILY [facility] Last Admin: 09/01/18 08:15 Dose: 1 tab Senna/Docusate Sodium (Patricia-Colace) 1 tab PO BID [facility] Last Admin: 09/01/18 21:51 Dose: 1 tab Sennosides (Senokot) 17.2 mg PO Q12H PRN PRN Reason: Moderate Constipation Sodium Chloride (Ns Flush) 2 ml IV.FLUSH BID [facility] Last Admin: 09/01/18 21:52 Dose: Not Given Sodium Chloride (Ns Flush) 2 ml IV.FLUSH PRN PRN PRN Reason: FLUSH AFTER USING IV ACCESS Tramadol HCl (Ultram) 100 mg PO Q6H PRN PRN Reason: pain Last Admin: 09/02/18 05:19 Dose: 100 mg Witch Katerina/Glycerin (Tucks Pads) 1 applicatio RECTAL QID PRN PRN Reason: HEMORRHOIDS Last Admin: 08/31/18 12:53 Dose: 1 applicatio Zolpidem Tartrate (Ambien) 5 mg PO HS PRN PRN Reason: SLEEP Last Admin: 09/02/18 00:38 Dose: 5 mg Assessment and Plan - Diagnosis (1) (normal spontaneous vaginal delivery) Code(s): O80 - Encounter for full-term uncomplicated delivery Status: Acute - Plan Assessment/plan: 32-year-old female at 33.1 WGA ppd1 vaginal delivery. premature rupture of membranes. -Received magnesium sulfate, betamethasone, ampicillin/azithromycin/rocephin -During delivery received 1g TXA, cytotec 200 BID for 2 days -Keflex 250 BID for 7 days as prophylaxis given PPROM and elevated white count -H/H today 10.5/30.7 from 9.6/27.3 stable -ativan prn anxiety --AF VSS --Continue routine care --Tramadol 100 q 6hrs and Tylenol when necessary for pain --Encourage OOB --Pelvic rest for 6 weeks will need follow-up appointment at that time. --Contraception: unsure --Discharge today --if continues to have green breast discharge recommend MRI outpatient when not breast pumping Patient discussed with Dr. Perez
[2018-09-02] MEDS: Senna/Docusate Sodium 8.6/50 MG Tablet PO SCH (08:52)
[2018-09-02] MEDS: miSOPROStol 200 MCG Tablet PO SCH (08:52)
[2018-09-02] MEDS: Docusate Sodium 100 MG Capsule PO SCH (08:53)
[2018-09-02] MEDS: Ferrous Sulfate 325 MG Tablet PO SCH (08:53)
[2018-09-02] MEDS: Prenatal Vit/Ca/Iron/Folic Acid Tablet PO SCH (08:54)
== END 2018-09-02 12:40 | disposition home or self-care (01) | DRG 805 ==
LOC: HOBED 11:48 → H2E 13:05 → H1EA 08-31 11:54
PROVIDERS: ADMIT Obstetrics & Gynecology; ATTEND Obstetrics & Gynecology
CPT/HCPCS: 36600; 59025; 76815; 80048; 80053; 80074; 80076; 80307; 81001; 82550; 82805; 83518; 84112; 84484; 85025; 86592; 86762; 86850; 86900; 86901; 87077; 87086; 87186; 87389; 87491; 87591; 88307; 93005; 93306; 99285; G0481; G0483; J0290; J0456; J0696; J0702; J1200; J2405; J2540; J2590; J3010; J3475; J7050; J7120